=== PATIENT | female | born 1955 | race Caucasian/White ===

== ENCOUNTER → 2016-11-19 | Outpatient (CLI) | payer OTHER | LOC: FIMAGING 17:01 | PROVIDERS: ATTEND Internal Medicine | DX: R55 Syncope and collapse (principal); R51 Headache; H53.9 Unspecified visual disturbance ==

== ENCOUNTER → 2017-04-03 | Outpatient (CLI) | payer OTHER | LOC: BMCIMAGING 14:43 | PROVIDERS: ATTEND Internal Medicine | DX: Z12.31 Encounter for screening mammogram for malignant neoplasm of breast (principal) | CPT/HCPCS: G0202 ==

== ENCOUNTER → 2017-04-10 | Outpatient (CLI) | payer OTHER | LOC: FIMAGING 10:25 | PROVIDERS: ATTEND Internal Medicine | DX: R91.8 Other nonspecific abnormal finding of lung field (principal); I25.10 Atherosclerotic heart disease of native coronary artery without angina pectoris ==

== ENCOUNTER → 2017-06-28 | Outpatient (CLI) | payer OTHER | LOC: FIMAGING 13:13 | PROVIDERS: ATTEND Physician Assistant Medical | DX: N85.8 Other specified noninflammatory disorders of uterus (principal); D25.1 Intramural leiomyoma of uterus ==

== ENCOUNTER 2017-10-23 08:21 | Observation (INO) | payer OTHER ==
[2017-10-23] MEDS ORDERED: PHENAZOPYRIDINE HCL 200 MG TAB PO ONE (08:43)
[2017-10-23] MEDS ORDERED: ACETAMINOPHEN 500 MG TAB PO ONE (08:43)
[2017-10-23] MEDS ORDERED: GABAPENTIN 400 MG CAP PO ONE (08:43)
[2017-10-23] MEDS ORDERED: ceFAZolin 2 GM/SWFI 2 GM/20 ML SYR IVP ONE (08:43)
[2017-10-23] MEDS ORDERED: LR 1,000 ML IV ONE (09:11)
--- NOTE | 2017-10-23 09:26 | PDHPUP ---
History & Physical Update H&P update statement: This history and physical update is based on an assessment of the patient which was completed after admission or registration (within 24 hours), but prior to the surgery/procedure. H&P update: H&P reviewed & patient examined, no change in patient's condition since H&P completed
--- NOTE | 2017-10-23 09:53 | PDANEPAE ---
ANE Past Medical History - Cardiovascular History Hx Hypertension: No Hx Arrhythmias: No Hx Chest Pain: No Hx Coronary Artery / Peripheral Vascular Disease: No Hx CHF / Valvular Disease: No Hx Palpitations: No - Pulmonary History Hx COPD: No Hx Asthma/Reactive Airway Disease: No Hx Recent Upper Respiratory Infection: No Hx Oxygen in Use at Home: No Hx Sleep Apnea: No Sleep Apnea Screening Result - Last Documented: Negative - Neurologic History Hx Cerebrovascular Accident: No Hx Seizures: No Hx Dementia: No - Endocrine History Hx Diabetes: No - Renal History Hx Renal Disorders: No - Liver History Hx Hepatic Disorders: No - Neurological & Psychiatric Hx Hx Neurological and Psychiatric Disorders: Yes Neurological / Psychiatric History Comment: depression - Cancer History Hx Cancer: Yes Cancer History Comment: skin CA basal cell - Congenital Disorder History Hx Congenital Disorders: No - GI History Hx Gastrointestinal Disorders: No - Other Health History Other Health History: stitches in forehead - Chronic Pain History Chronic Pain: No - Surgical History Prior Surgeries: bowel obstruction,gastric bypass,umbilical hernia repair ANE Review of Systems Review of Systems: - Exercise capacity METS (RN): 5 METS ANE Patient History - Allergies Allergies/Adverse Reactions: tape Allergy (Mild, Uncoded 10/23/17 08:49) Other-Enter Comments - Home Medications Home Medications: Levothyroxine [Synthroid 25 mcg (RX)] 09/21/13 [Last Taken 10/22/17] Levothyroxine [Synthroid] 09/21/13 [Last Taken 10/23/17] Sertraline HCl [Zoloft 100mg (RX)] 09/21/13 [Last Taken 10/23/17] metFORMIN HCL [Metformin HCl ER] 09/21/13 [Last Taken 10/22/17 20:00] - NPO status NPO Since - Liquids (Date): 10/23/17 NPO Since - Liquids (Time): 06:45 NPO Since - Solids (Date): 10/22/17 NPO Since - Solids (Time): 21:00 - Smoking Hx Smoking Status: Never smoked - Family Anes Hx Family Hx Anesthesia Complications: none ANE Labs/Vital Signs - Vital Signs Blood Pressure: 113/79 Heart Rate: 70 Respiratory Rate: 16 O2 Sat (%): 97 Height: 147.32 cm Weight: 63.503 kg ANE Physical Exam - Airway Neck exam: FROM Mallampati Score: Class 2 - Pulmonary Pulmonary: no respiratory distress - Cardiovascular Cardiovascular: regular rate and rhythym - ASA Status ASA Status: II ANE Anesthesia Plan Anesthesia Plan: general endotracheal anesthesia
[2017-10-23] MEDS ORDERED: DEXAMETHASONE 4 MG/ML VIAL ONE ×2 (09:54)
[2017-10-23] MEDS ORDERED: METOCLOPRAMIDE 10 MG/2 ML VIAL ONE (09:54)
[2017-10-23] MEDS ORDERED: ROCURONIUM 50 MG/5 ML VIAL ONE (09:54)
[2017-10-23] MEDS ORDERED: MIDAZOLAM 2 MG/2 ML VIAL ONE (09:54)
[2017-10-23] MEDS ORDERED: PROPOFOL 200 MG/20 ML VIAL ONE (09:54)
[2017-10-23] MEDS ORDERED: KETOROLAC 30 MG/1 ML SDV ONE (09:55)
[2017-10-23] MEDS ORDERED: ONDANSETRON 4 MG/2 ML VIAL ONE (09:55)
[2017-10-23] MEDS ORDERED: RANITIDINE 50 MG/2 ML VIAL ONE (09:55)
[2017-10-23] MEDS ORDERED: LIDOCAINE 2% 100 MG/5 ML SYR ONE (10:03)
[2017-10-23] MEDS ORDERED: BUPIVACAINE/EPI 0.5% 30 ML SDV ONE (10:06)
[2017-10-23] MEDS ORDERED: ALBUTEROL 3 ML DEYVIAL IH PRN (12:26)
[2017-10-23] MEDS ORDERED: fentaNYL 100 MCG/2 ML INJ IVP PRN (12:26)
[2017-10-23] MEDS ORDERED: NALOXONE HCL 0.4 MG/ML INJ IVP PRN (12:26)
[2017-10-23] MEDS ORDERED: ONDANSETRON 4 MG/2 ML VIAL IVP PRN ×2 (12:26→12:30)
--- NOTE | 2017-10-23 12:27 | POSTANESTH ---
Post Anesthetic Evaluation Cardiovascular Status: Similar to Pre-Op Cond Respiratory Status: Similar to Pre-op Cond. Level of Consciousness/Mental Status: Mildly Sleepy, Arousable Pain Control: Adequate, Prn Tx Ordered Nausea/Vomiting Control: Adequate, Prn Tx Ordered Complications Possibly Related to Anesthesia: None Noted
[2017-10-23] MEDS ORDERED: HYDROmorphONE/DILAUDID 1 MG/ML INJ IVP PRN (12:30)
[2017-10-23] MEDS ORDERED: PROMETHAZINE HCL 25 MG/ML INJ IVP PRN (12:30)
[2017-10-23] MEDS ORDERED: HYDROCODONE/APAP 5/325 TAB PO PRN (12:30)
[2017-10-23] MEDS ORDERED: LR 1,000 ML IV SCH (12:30)
--- NOTE | 2017-10-23 12:36 | POSTOPPROG ---
Post Op Note Date of Operation: 10/23/17 Surgeon: Arnaud Richter Equipment Specialist: Cassy Fatima Anesthesiologist: Phyllis Anesthesia: GET(General Endotracheal) Pre-op Diagnosis: Uterovaginal prolapse, stress incontinence Post-op Diagnosis: same Procedure: robotic hyst, bso, sacrocolpopexy, TOT sling, cysto Findings: ureters function at end of case Inf/Abcess present in the surg proc area at time of surgery?: No EBL: Minimal Complications: none
--- NOTE | 2017-10-23 13:28 | GOP ---
[f rep st] OPERATIVE REPORT DATE OF OPERATION: 10/23/2017 SURGEON: rAnaud Richter MD [employer] CUSTODIAN: ASCENCION Red ANESTHESIA: General. PREOPERATIVE DIAGNOSIS: 1. Uterovaginal prolapse. 2. Stress urinary incontinence. POSTOPERATIVE DIAGNOSIS: 1. Uterovaginal prolapse. 2. Stress urinary incontinence. PROCEDURE PERFORMED: 1. Robotic-assisted laparoscopic hysterectomy, bilateral salpingo-oophorectomy. 2. Sacrocervicopexy with mesh. 3. Repair of cystocele and rectocele. 4. Transobturator sling. 5. Cystoscopy. FINDINGS: SPECIMENS: Uterus, bilateral tubes, and ovaries. ESTIMATED BLOOD LOSS: Scant. DESCRIPTION OF PROCEDURE: The patient was taken to the operating room where she was identified. Gen eral anesthesia was administered and found to be adequate. She was placed in the lithotomy position and prepared and draped in normal sterile fashion. A Gilbert catheter was placed in her bladder. A 1 cm infraumbilical incision was made with a scalpel. The Veress needle with the CO2 gas flowing w as advanced into the peritoneal cavity. The abdomen was then insufflated with carbon dioxide gas. T he 12 mm trocar followed by the laparoscope were then inserted. The upper abdomen was unremarkable. Two lateral ports were placed on either side under direct visualization. She then was placed in Serge ndelenburg position and the da Michelle robot docked on the left side. The instruments were then david t into the abdominal cavity under direct visualization. The uterus, tubes and ovaries were grossly u nremarkable. The left round ligament was divided. The anterior leaf of the broad ligament was incised to the bifu rcation of the left common iliac vessels. The course of the ureters was easily identified. A window was created anterior to the left ureter to skeletonize the left infundibulopelvic vessels. They wer e then cauterized and transected. The anterior leaf of the broad ligament was incised over the left uterine vessels and across the cervix. The bladder was gently dissected off the cervix and upper vag mannie. The left uterine vasculature was then cauterized and transected. The exact same procedure was performed on the patient's right side. The uterus was then bivalved to aid in removal of the umbilic us. The uterus and upper two-thirds of the cervix were amputated from the lower third of the cervix with the hot ernestina. This specimen was placed in the right upper quadrant for later removal. The Colpo-Probe was placed in the vagina. The bladder was further dissected off the anterior vaginal wall down to the level of the bladder neck. The rectovaginal space was then entered and the rectum dissected off the posterior vaginal wall down to the level of the perineal body. Measurements were t hen obtained and the mesh trimmed to size. The sigmoid colon was then retracted laterally. The peritoneum over the sacral promontory was incise d and the fat pad gently dissected off the anterior longitudinal ligament. The mesh was then brought into the abdominal cavity. Three sutures of 4-0 [place] were used to attach the distal posterior m esh to the perineal body. Two additional rows of [place] sutures were placed posteriorly. Three ro ws were placed anteriorly to suture the anterior mesh down to the level of the bladder neck and later ally to the paravaginal tissue. The sacral arm of the mesh was placed over the promontory and the te nsion was adjusted to resolve the cystocele and rectocele without undue tension on the vagina. Two s utures of 2-0 [place] were used to attach the sacral arm of the mesh to the anterior longitudinal li gament just below the intervertebral disk space. The peritoneum was then closed over the entire mesh . The robot was then undocked. The specimen removed through the umbilicus. The fascia was closed w ith 0 Vicryl, skin with 4-0 Monocryl and surgical adhesive. Attention was then turned to the sling portion of the procedure. A midurethral incision was made wit h a scalpel. Tunnels were created bilaterally out toward the obturator internus muscles. Skin incis ions were made over the obturator notches. The Halo trocar was placed through the left skin incision , redirected around the ischial pubic rami and out through the vaginal incision using a vaginal finge r as a guide. The sling was then attached and brought out along the same course. The lateral sulci were examined and no evidence of vaginal injury had occurred. The exact same procedure was performed on the patient's right side. The sling was then adjusted to allow a small midurethral gap. The vag inal epithelium was closed with 2-0 Vicryl, skin with 4-0 Monocryl. Cystoscopy was then performed. Both ureters had vigorous jets of urine. There was no evidence of bl adder nor urethral injury seen. No mesh nor sutures were seen within the bladder nor urethra. No ob vious pathology was seen. Vaginal packing was then placed, anesthesia was reversed, and the patient taken to PACU awake, in stable condition. COMPLICATIONS: None. DISPOSITION: Patient stable to PACU. /[id number]/MODL
[2017-10-23] MEDS: KETOROLAC 30 MG/1 ML SDV IVP SCH ×2 (16:21→22:01)
[2017-10-23] MEDS ORDERED: KETOROLAC 30 MG/1 ML SDV IVP SCH (18:00)
[2017-10-23] MEDS: SIMETHICONE 80 MG TAB CHEW PO SCH ×3 (18:20→22:02)
[2017-10-23] MEDS: DOCUSATE SODIUM 100 MG CAP PO SCH (19:52)
[2017-10-23 20:32] VITALS: TEMP 97.4
[2017-10-24] MEDS: KETOROLAC 30 MG/1 ML SDV IVP SCH ×2 (04:10→10:46)
[2017-10-24] MEDS ORDERED: LEVOTHYROXINE 200 MCG TAB PO SCH (06:00)
[2017-10-24] MEDS ORDERED: SERTRALINE HCL 100 MG TAB PO SCH (09:00)
[2017-10-24 09:31] VITALS: BP 105/68; PULSE 71; RESP 17; O2SAT 96
[2017-10-24] MEDS: DOCUSATE SODIUM 100 MG CAP PO SCH (10:47)
[2017-10-24] MEDS: SIMETHICONE 80 MG TAB CHEW PO SCH (12:02)
== END 2017-10-24 15:15 | disposition home or self-care (01) ==
LOC: F3E 08:21 → FOB 13:44
PROVIDERS: ADMIT Obstetrics & Gynecology; ATTEND Obstetrics & Gynecology
DX: N81.2 Incomplete uterovaginal prolapse (principal); N81.11 Cystocele, midline; N81.6 Rectocele; N39.3 Stress incontinence (female) (male); D25.9 Leiomyoma of uterus, unspecified; E03.9 Hypothyroidism, unspecified; E28.2 Polycystic ovarian syndrome; Z98.84 Bariatric surgery status
CPT/HCPCS: 57250; 57288; 57425; 58571; G0378; C1763; C1771; J0690; J1100; J1885; J2001; J2250; J2405; J2704; J2765; J2780

== ENCOUNTER 2017-11-13 14:10 | Emergency (ER) | payer OTHER ==
[2017-11-13 14:22] VITALS: TEMP 98.2; O2SAT 96
--- NOTE | 2017-11-13 14:54 | EDPHY ---
H & P Stated Complaint: fever/elevated wbc/hysterectomy 10/[address] in [address] Time Seen by Provider: 11/13/17 14:51 HPI/ROS: CHIEF COMPLAINT: Fatigue, fever, status post hysterectomy HISTORY OF PRESENT ILLNESS: The patient presents to the ED with worsening fatigue, a 2 day history of fever and some mild lower abdominal pain. The patient is approximately 3 weeks status post hysterectomy. She was seen at the Urgent Care reportedly had a negative urinalysis. She had an unremarkable serum chemistry panel. [place] [id number]. She was sent to the ED for further evaluation. The patient denies any fever, cough or congestion. She denies any arthralgias, diarrhea or dysuria. She denies severe abdominal pain but does report some lower abdominal discomfort. REVIEW OF SYSTEMS: A comprehensive 10 point review of systems is otherwise negative aside from elements mentioned in the history of present illness. Source: Patient Exam Limitations: No limitations - Personal History Current Tetanus/Diphtheria Vaccine: Yes Tetanus Vaccine Date: 2008 - Medical/Surgical History Hx Asthma: No Hx Chronic Respiratory Disease: No Hx Diabetes: No Hx Cardiac Disease: No Hx Renal Disease: No Hx Cirrhosis: No Hx Alcoholism: No Hx HIV/AIDS: No Hx Splenectomy or Spleen Trauma: No Other PMH: HX: HYPOTHYROID, PROLAPSED "EVERYTHING", STOMACH BYPASS, PCOS, HERNIA REPAIR, APPY - Social History Smoking Status: Never smoked - Physical Exam Exam: General Appearance: Alert, no distress Eyes: Pupils equal and round no pallor or injection ENT, Mouth: Mucous membranes moist Respiratory: There are no retractions, lungs are clear to auscultation Cardiovascular: Regular rate and rhythm Gastrointestinal: Surgical incisions appear clean dry and intact, tenderness only to very deep palpation, no peritoneal signs Neurological: 5/5 strength all 4 extremities Skin: Warm and dry, no rashes Musculoskeletal: Neck is supple nontender Extremities: symmetrical, full range of motion Constitutional: Initial Vital Signs Temperature (C) 36.8 C 11/13/17 14:14 Heart Rate 97 11/13/17 14:14 Respiratory Rate 17 11/13/17 14:14 Blood Pressure 120/78 11/13/17 14:14 O2 Sat (%) 96 11/13/17 14:14 O2 Delivery Mode Room Air Allergies/Adverse Reactions: tape Allergy (Mild, Uncoded 10/23/17 08:49) Other-Enter Comments Home Medications: Medication Instructions Recorded Levothyroxine [Synthroid 200 mcg 09/21/13 (*)] Levothyroxine [Synthroid 25 mcg 09/21/13 (*)] Sertraline HCl [Zoloft 100mg (*)] 09/21/13 metFORMIN HCL [Metformin HCl ER] 09/21/13 Estradiol Valerate 11/13/17 Medical Decision Making - Diagnostics Imaging Results: Imaging Impressions Abdomen CT 11/13/17 15:02 Impression: 1. Mild residual inflammatory stranding at the site of recent hysterectomy. No discrete pelvic or intra-abdominal infection. 2. Gastric bypass postsurgical changes with no evidence of anastomotic complication. Findings and recommendations discussed with Sebastian Coats at 343pm hour, 11/13. ED Course/Re-evaluation: The patient presents to the ED with symptoms of a malaise and mild postoperative pain. The patient is in no acute distress. I found her abdominal examination to be very benign. Given her leukocytosis and recent surgery a CT scan of the abdomen pelvis was obtained which demonstrates no evidence of an obvious abscess or intra-abdominal infection. The patient had a negative urinalysis prior to coming to the emergency department. She has no respiratory complaints. She has no obvious localizing symptoms of infection on exam. The patient will be advised to increase her fluid intake as she may be experiencing symptoms of a mild viral illness. She can use Tylenol and ibuprofen as needed for pain. She has been assured that there are no acute findings on her CT scan today. Patient will be discharged home with customary aftercare instructions and return precautions. I did re-evaluate the patient at 4:00 p.m. Reviewing the results of her CT scan and blood tests as well as discussing the follow-up plan. Differential Diagnosis: Differential diagnosis considered includes perforation, obstruction, pelvic abscess, urinary tract infection, viral syndrome - Data Points Laboratory Results: Laboratory Results 11/13/17 14:50 11/13/17 14:50 11/13/17 11/13/17 14:50 14:50 WBC Cancelled RBC Cancelled Hgb Cancelled Hct Cancelled MCV Cancelled MCH Cancelled MCHC Cancelled RDW Cancelled Plt Count Cancelled MPV Cancelled Neut % (Auto) Cancelled Lymph % (Auto) Cancelled [place] % (Auto) Cancelled Eos % (Auto) Cancelled Baso % (Auto) Cancelled Nucleat RBC Rel Count Cancelled Absolute Neuts (auto) Cancelled Absolute Lymphs (auto) Cancelled Absolute Monos (auto) Cancelled Absolute Eos (auto) Cancelled Absolute Basos (auto) Cancelled Absolute Nucleated RBC Cancelled Immature Gran % Cancelled Immature Gran # Cancelled Turbidity Cancelled Sodium Cancelled Potassium Cancelled Chloride Cancelled Carbon Dioxide Cancelled Anion Gap Cancelled BUN Cancelled Creatinine Cancelled Estimated GFR Cancelled Glucose Cancelled Calcium Cancelled Specimen Hemolysis Cancelled Departure - Departure Disposition: Home, Routine, Self-Care Clinical Impression: Fatigue Condition: Good Instructions: Laparoscopic Hysterectomy (DC) Additional Instructions: 1. Please return to the emergency department for any worsening symptoms, cough, vomiting or other concerns. 2. Your CT scan demonstrates no evidence of an obvious abscess or infection. 3. It is possible your developing symptoms of a mild viral syndrome. I do recommend Tylenol and ibuprofen as needed for pain. You should follow up with your primary care provider for any ongoing symptoms. Referrals: Roxie Bell MD [Primary Care Provider] - As per Instructions
[2017-11-13] MEDS ORDERED: IOPAMIDOL (ISOVUE-300) 100 ML BTL ONE (15:19)
[2017-11-13 16:55] VITALS: BP 138/75; PULSE 80; RESP 16
== END 2017-11-13 16:53 | disposition home or self-care (01) ==
DX: R53.83 Other fatigue (principal)
CPT/HCPCS: Q9967

== ENCOUNTER → 2018-08-21 | Outpatient (CLI) | payer OTHER | LOC: BMCIMAGING 10:10 | PROVIDERS: ATTEND Internal Medicine | DX: Z13.820 Encounter for screening for osteoporosis (principal); M85.89 Other specified disorders of bone density and structure, multiple sites ==